=== PATIENT | female | born 1950 | race Hispanic/Latino ===

== ENCOUNTER 2020-10-17 09:47 | Outpatient (CLI) | payer MEDICARE ==
[2020-10-17 22:23] LABS: SARS-CoV-2 NAA Rapid Test Not Detected (NotDetected)
== END 2020-10-17 09:48 | disposition home or self-care (01) ==
LOC: LABBT 09:47
PROVIDERS: ATTEND Family Medicine
DX: Z01.812 Encounter for preprocedural laboratory examination (principal); H43.11 Vitreous hemorrhage, right eye; Z20.822 Contact with and (suspected) exposure to COVID-19
CPT/HCPCS: U0002; U0005

== ENCOUNTER 2020-10-22 08:56 | Day surgery (SDC) | payer MEDICARE ==
[2020-10-21 16:22] VITALS: BMI 25.4
[~2020-10-22 08:56] MED LIST: EPINEPHrine 0.3 MG in Ophthalmic Irrigation Solution 500 ML IRR SCH; Fentanyl 100 MCG/2 ML VIAL ONE; Midazolam HCl 2 mg/2 ml Vial ONE
[2020-10-22] MEDS ORDERED: Cyclopentolate 1% Opth Drop 2 ML BOT ONE (09:13)
[2020-10-22] MEDS ORDERED: Phenylephrine 2.5% Ophth Soln 5 ML BOT ONE (09:13)
[2020-10-22] MEDS ORDERED: CEFAZOLIN 1 GM VIAL ONE (10:56)
[2020-10-22] MEDS ORDERED: Bupivacaine PF 0.75% SDV 10 ML ONE (10:56)
[2020-10-22] MEDS ORDERED: Maxitrol 0.1% Opth Oint 3.5 GM TUBE ONE (10:56)
[2020-10-22] MEDS ORDERED: Lidocaine 1% PF 5 ML VIAL ONE ×2 (10:56)
[2020-10-22] MEDS ORDERED: Triamcinolone 40 MG/ML VIAL ONE (10:56)
[2020-10-22] MEDS ORDERED: Lidocaine 4% PF 5 ML AMP ONE (10:56)
[2020-10-22] MEDS ORDERED: PROPOFOL 200 MG/20 ML VIAL ONE (10:56)
== END 2020-10-22 12:47 | disposition home or self-care (01) ==
LOC: SDC 08:56
PROVIDERS: ATTEND Ophthalmology Retina Specialist
PROC: 08T43ZZ Resection of Right Vitreous, Percutaneous Approach (ICD-10-PCS; principal; 2020-10-22)
PROC: 08QE3ZZ Repair Right Retina, Percutaneous Approach (ICD-10-PCS; 2020-10-22)
DX: H43.11 Vitreous hemorrhage, right eye (principal); E11.3591 Type 2 diabetes mellitus with proliferative diabetic retinopathy without macular edema, right eye
CPT/HCPCS: J0171; J0690; J2250; J2704; J3010; J3301; J3490